=== PATIENT | female | born 1935 | race Caucasian/White ===

== ENCOUNTER → 2018-12-23 | Outpatient (CLI) | payer OTHER ==
[~2018-12-23] MED LIST: IOPAMIDOL (ISOVUE-300) 100 ML BTL ONE
== END ==
LOC: CIMAGING 13:41
PROVIDERS: ATTEND Internal Medicine Critical Care Medicine
DX: I26.99 Other pulmonary embolism without acute cor pulmonale (principal); J31.0 Chronic rhinitis; R91.8 Other nonspecific abnormal finding of lung field
CPT/HCPCS: 71260; Q9967; 82565-PO

== ENCOUNTER 2018-12-28 06:16 | Day surgery (SDC) | payer OTHER ==
[2018-12-28] MEDS ORDERED: fentaNYL 100 MCG/2 ML INJ ONE (07:10)
[2018-12-28] MEDS ORDERED: MIDAZOLAM 2 MG/2 ML VIAL ONE (07:10)
[2018-12-28] MEDS ORDERED: EPINEPHrine 1 MG/ML INJ ONE (07:11)
[2018-12-28] MEDS ORDERED: LIDOCAINE 1% 5 ML SDV ONE ×2 (07:11→07:41)
[2018-12-28] MEDS ORDERED: ALBUTEROL 3 ML DEYVIAL ONE (07:11)
--- NOTE | 2018-12-28 07:18 | PDPROPOC ---
Sedation Plan of Care Sedation Plan of Care: vital signs stable, mental status noted, patient educated of risks, benefits, alternatives, patient can tolerate sedation ASA Classification: ASA 2 Planned drugs: fentanyl, midazolam Mallampati Score: Class 2 Mallampati Reference Image:
--- NOTE | 2018-12-28 07:18 | PDHPUP ---
History & Physical Update H&P update statement: This history and physical update is based on an assessment of the patient which was completed after admission or registration (within 24 hours), but prior to the surgery/procedure. H&P update: H&P reviewed & patient examined, no change in patient's condition since H&P completed
--- NOTE | 2018-12-28 08:27 | BVPULMO ---
[facility]- Pulmonology Patient Name: Julieta Cuadra Procedure Date: 12/28/2018 7:23 AM Patient Type: Outpatient Attending MD/ER Physician: Eric Emmanuel MD Procedure: Bronchoscopy Indications: Nodule of lung, Diagnostic bronchoalveolar lavage Providers: Eric Emmanuel MD Medicines: Lidocaine 1% applied to cords 2 mL, Lidocaine 1% applied to the tracheobronchia l tree 10 mL, Fentanyl 50 mcg IV, Midazolam 2 mg IV Complications: No immediate complications Procedure: After informed consent, a time out was performed. N95 masks were worn, and the procedure was done in a negative pressure room. The patient was given appropria te topical anesthesia and intravenous sedation. The fiberopic bronchoscope was pas sed via a bite block orally into the larynx and subsequently into the lower trachea bronchial tree. Throughout the procedure, the patient's blood pressure, pulse, and oxygen saturations were monitored continuously. The was introduced through the mouth and advanced to the tracheobronchial tree of both lungs. The procedure was accomplished without difficulty. The patient tolerated the procedure well. Moderate Sedation: Moderate (conscious) sedation was personally administered by the meter installer and remover. The following parameters were monitored: oxygen saturation, heart rate, blood press ure, and response to care. Total physician intraservice time was 15 minutes. Findings: Specific locations: The following were directly visualized, and are normal: lar ynx, vocal cord motion, trachea, yovany, left mainstem bronchus, right mainstem bron chus, bronchus intermedius, left upper lobe including subsegments,left lower lobe including subsegments, right upper lobe including subsegments, right middle lob e including subsegments, right lower lober including subsegments. Bronchoalveolar lavage was performed in the RLL posterior basal segment (B10) o f the lung. 120 mL of fluid were instilled. 60 mL were returned. The return was clear . There were no mucoid plugs in the return fluid. Washings were obtained. The return was clear. Post Op Diagnosis: - Nodule of lung - Bronchoalveolar lavage - Bronchoalveolar lavage was performed. - Washings were obtained. - A narrowing was found in the right lower lobe. 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 Estimated Blood Loss: Estimated blood loss: none. Recommendation: - The patient will be observed post-procedure, until all discharge criteria are met. - The patient was advised to call or return to the clinic if there are signs or symptoms suggesting a complication/adverse reaction from the procedure. Eric Emmanuel MD Eric Emmanuel MD 12/28/2018 8:27:17 AM This report has been signed electronicallyEric Emmanuel MD Number of Addenda: 0 Note Initiated On: 12/28/2018 7:23 AM [email or web address]
[2018-12-28 10:16] VITALS: BP 125/71
== END 2018-12-28 09:45 | disposition home or self-care (01) ==
LOC: FSGY 06:16
PROVIDERS: ATTEND Internal Medicine Critical Care Medicine
DX: R05 Cough (principal); R91.1 Solitary pulmonary nodule; I27.82 Chronic pulmonary embolism
CPT/HCPCS: J0171; J2250; J3010; J7613